=== PATIENT | female | born 1955 | race Caucasian/White ===

== ENCOUNTER 2017-09-28 08:43 | Emergency (ER) | payer MEDICARE, OTHER ==
[2017-09-28] MEDS ORDERED: ORPHENADRINE CITRATE 30 MG/ML VIAL IM ONE (09:18)
[2017-09-28] MEDS ORDERED: ORPHENADRINE CITRATE 30 MG/ML VIAL ONE (09:41)
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
[2017-09-28 10:46] VITALS: BP 148/74
== END 2017-09-28 10:50 | disposition home or self-care (01) ==
LOC: ER 08:43
DX: E11.9 Type 2 diabetes mellitus without complications; M54.2 Cervicalgia

== ENCOUNTER 2018-05-14 19:21 | Inpatient (IN) | payer MEDICARE, OTHER ==
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
[2018-05-14] MEDS ORDERED: ONDANSETRON HCL/PF 2 MG/ML VIAL IV ONE (20:01)
[2018-05-14] MEDS ORDERED: KETOROLAC TROMETHAMINE 30 MG/ML VIAL IV ONE (20:02)
[2018-05-14] MEDS ORDERED: KETOROLAC TROMETHAMINE 30 MG/ML VIAL ONE ×2 (20:04→20:41)
[2018-05-14] MEDS ORDERED: ONDANSETRON HCL/PF 2 MG/ML VIAL ONE (20:04)
[2018-05-14 20:16] LABS: Hematocrit 49.3 % (37.0-47.0); Hemoglobin 15.8 gm/dL (12.5-16.0); Mean Cell Volume 79.6 fl (78-100); Mean Corpuscular Hemoglobin 25.5 pg (27-31); Mean Platelet Volume 10.2 fl (8-12.5); Neutrophil # 8.7 K/mm3 (1.3-6.0); Neutrophil % 68.7 % (42-75.0); Platelet Count 387 K/mm3 (150-450); Red Blood Count 6.19 M/mm3 (4.2-5.4); Red Cell Distribution Width 15.5 % (11.5-14.0); White Blood Count 12.7 K/mm3 (4.0-10.5)
[2018-05-14 20:18] LABS: Total Cells Counted 100
[2018-05-14 20:30] LABS: Albumin * 3.5 gm/dl (3.4-5.0); Anion Gap 18.7 mmol/L (6.8-13.8); BUN/Creatinine Ratio 38.4 (9.0-21.6); Bilirubin, Total 0.5 mg/dL (0.0-1.1); Ca. Corrected For Albumin 9.1 mg/dL (8.4-10.2); Carbon Dioxide 24.5 mmol/L (24-32.6); Potassium 4.2 mmol/L (3.4-4.6); Total Protein 7.9 gm/dL (6.2-8.2)
[2018-05-14] MEDS: NORMAL SALINE 1,000 ML IV PRN ×2 (20:32→22:23)
[2018-05-14 20:35] LABS: Band 3 % (0-2.0); Lymphocyte 7 % (20-51); Monocyte 11 % (0-9); Neutrophil 79 % (42-75); Platelet Estimate Normal (NORMAL); RBC Morphology Normal (NORMAL)
[2018-05-14 21:10] LABS: BNP * 769 pg/mL (5-205); Troponin I Less than 0.017 ng/mL (0.00-0.10)
[2018-05-14] MEDS ORDERED: NORMAL SALINE 1,000 ML IV ONE (22:42)
[2018-05-15] MEDS: NORMAL SALINE 1,000 ML IV PRN ×3 (07:00→21:36)
[2018-05-15 07:50] LABS: Urine Bilirubin 1 mg/dl (NEGATIVE); Urine Blood Negative /ul (NEGATIVE); Urine Ketone 5 mg/dL (NEGATIVE); Urine Nitrite Negative (NEGATIVE); Urine Protein 15 mg/dL (NEGATIVE); Urine Specific Gravity >=1.030 SP.GR. (1.005-1.010); Urine Urobilinogen Normal (NORMAL); Urine pH 5.5 pH (5.0-7.0)
[2018-05-15 07:53] LABS: Anion Gap 14.6 mmol/L (6.8-13.8); BUN/Creatinine Ratio 50.8 (9.0-21.6); Calcium * 8.7 mg/dL (7.9-10.9); Estimated Creat Clear 22.5; Potassium 3.6 mmol/L (3.4-4.6)
[2018-05-15 07:57] LABS: Urine Appearance Slightly Cloudy (CLEAR); Urine Bacteria 2+; Urine Color Yellow; Urine Mucus Moderate - 2+; Urine RBC None Seen /hpf (0-5); Urine WBC 0-5 /hpf (0-5)
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
[2018-05-15] MEDS ORDERED: ONDANSETRON HCL 4 MG TABLET PO PRN (09:24)
[2018-05-15] MEDS: DILTIAZEM HCL 180 MG CAP.SR.24H PO SCH (09:58)
[2018-05-15] MEDS: ASPIRIN 81 MG TABLET.DR PO SCH (09:58)
[2018-05-15] MEDS: sitaGLIPtin PHOSPHATE 50 MG TABLET PO SCH (09:58)
[2018-05-15] MEDS: GLIMEPIRIDE 4 MG TABLET PO SCH ×2 (09:59→20:44)
[2018-05-15] MEDS: LOSARTAN POTASSIUM 50 MG TABLET PO SCH (09:59)
[2018-05-15] MEDS: LEVOTHYROXINE SODIUM 50 MCG TABLET PO SCH (09:59)
[2018-05-15] MEDS ORDERED: DILTIAZEM HCL 5 MG/ML VIAL IV ONE (11:27)
[2018-05-15] MEDS ORDERED: METOPROLOL TARTRATE 1 MG/ML AMPUL IV ONE (12:44)
[2018-05-15] MEDS: ENOXAPARIN SODIUM 30 MG/0.3 ML SYRG SC SCH (13:27)
[2018-05-15] MEDS ORDERED: ONDANSETRON HCL/PF 2 MG/ML VIAL ONE (19:33)
[2018-05-15] MEDS: ONDANSETRON HCL/PF 2 MG/ML VIAL IV SCH ×2 (19:35→23:09)
[2018-05-15] MEDS: ROSUVASTATIN CALCIUM 10 MG TABLET PO SCH (20:44)
[2018-05-15] MEDS: TOPIRAMATE 50 MG TABLET PO SCH (20:45)
[2018-05-16] MEDS: ONDANSETRON HCL/PF 2 MG/ML VIAL IV SCH (03:28)
[2018-05-16] MEDS: METOCLOPRAMIDE HCL 5 MG/ML VIAL IV PRN ×2 (05:01→09:44)
[2018-05-16] MEDS: NORMAL SALINE 1,000 ML IV PRN ×3 (05:01→19:35)
[2018-05-16 06:18] LABS: Anion Gap 12.3 mmol/L (6.8-13.8); BUN/Creatinine Ratio 58.8 (9.0-21.6); Calcium * 9.1 mg/dL (7.9-10.9); Carbon Dioxide 29.2 mmol/L (24-32.6); Estimated Creat Clear 35.3; Potassium 3.5 mmol/L (3.4-4.6)
[2018-05-16] MEDS: LEVOTHYROXINE SODIUM 50 MCG TABLET PO SCH (07:06)
[2018-05-16] MEDS ORDERED: DIATRIZOATE MEGLUMINE, SODIUM 30 ML BTL PO ONE (08:00)
--- NOTE | 2018-05-16 08:40 | PN ---
Progess Note - Interim Date: 05/16/18 Time: 08:38 Narrative: 05/16/18 08:38 Patient still with Nausea as we were talking to her. Further plans pending CTS of abdomen and pelvis. Will refer to Dr. Gillis. Keep NPO and continue with IVF.
[2018-05-16] MEDS: DILTIAZEM HCL 180 MG CAP.SR.24H PO SCH (11:25)
[2018-05-16] MEDS: LOSARTAN POTASSIUM 50 MG TABLET PO SCH (11:25)
[2018-05-16] MEDS: sitaGLIPtin PHOSPHATE 50 MG TABLET PO SCH (11:25)
[2018-05-16] MEDS: ASPIRIN 81 MG TABLET.DR PO SCH (11:25)
[2018-05-16] MEDS: GLIMEPIRIDE 4 MG TABLET PO SCH ×2 (11:25→21:27)
[2018-05-16] MEDS: ENOXAPARIN SODIUM 30 MG/0.3 ML SYRG SC SCH (14:29)
--- NOTE | 2018-05-16 16:12 | PN ---
Subjective - Date and Time Seen Date: 05/16/18 Time: 16:07 Subjective Narrative: Patient had a CTS done- SBO Objective - Review of Systems Generalized/Overall Review: Denies: Chills, Fever Respiratory: Denies: Cough, Shortness of Breath Cardiac: Denies: Chest Pain, Edema, Palpitations Abdominal: Reports: Nausea. Denies: Vomiting, Abdominal Pain Genitourinary Symptoms: Denies: Urgency, Frequency - Vitals Vitals: Last Vital Signs Temp 36.9 C 05/16/18 14:30 Pulse 102 H 05/16/18 14:30 Resp 16 05/16/18 14:30 BP 129/53 05/16/18 14:30 Pulse Ox 91 L 05/16/18 14:30 - Abnormal Lab Findings Abnormal Lab Findings: Abnormal Lab Results 05/16/18 Range/Units 06:00 BUN 67 H (3-23) mg/dL Est GFR (Non-Af Amer) 52 L D (60-130) mL/min BUN/Creatinine Ratio 58.8 H (9.0-21.6) Random Glucose 286 H (70-110) mg/dL - Exam Constitutional: Present: Alert, Oriented x3, Cooperative ENT Exam: Present: hearing grossly normal Neck: Present: supple Respiratory: Present: decreased breath sounds. Absent: No rales, No wheezing Cardiovascular/Chest: Present: regular rate, rhythm, no JVD, no murmur Abdomen: Present: no rebound tenderness, tender - mild, firm, distended, high pitched bowel sounds Extremity: Present: no pedal edema, no calf tenderness Assessment/Plan - Problems/Diagnosis (1) Small bowel obstruction Problem: Acute Narrative: on AXR and CTS . Surgery on consult. continue with NPO nd IVF. will repeat CBc, BMP. (2) Diabetes mellitus Problem: Acute (3) HALIE (acute kidney injury) Problem: Acute (4) Concussion Problem: Acute (5) Dehydration Problem: Acute (6) Fall Problem: Acute Qualifiers: Encounter type: initial encounter Qualified Code(s): W19.XXXA - Unspecified fall, initial encounter (7) Hyperlipidemia Problem: Chronic (8) Hypertension Problem: Chronic (9) Hypothyroidism Problem: Chronic (10) Morbid obesity Problem: Chronic
[2018-05-16 16:44] LABS: Hematocrit 46.7 % (37.0-47.0); Hemoglobin 14.6 gm/dL (12.5-16.0); Mean Cell Volume 80.1 fl (78-100); Mean Corpuscular Hgb Conc 31.3 g/dl (32-36); Mean Platelet Volume 9.8 fl (8-12.5); Platelet Count 287 K/mm3 (150-450); Red Blood Count 5.83 M/mm3 (4.2-5.4); Red Cell Distribution Width 15.6 % (11.5-14.0); White Blood Count 18.6 K/mm3 (4.0-10.5)
[2018-05-16 16:49] LABS: Total Cells Counted 100
[2018-05-16 17:15] LABS: Immature Granulocyte 3 (0-1); Lymphocyte 6 % (20-51); Monocyte 12 % (0-9); Neutrophil 79 % (42-75); Neutrophil # 14.7 K/mm3 (1.3-6.0)
[2018-05-16] MEDS: TOPIRAMATE 50 MG TABLET PO SCH (21:27)
[2018-05-16] MEDS: ROSUVASTATIN CALCIUM 10 MG TABLET PO SCH (21:27)
--- NOTE | 2018-05-16 21:36 | CONS ---
HPI - General Date of Service: 05/16/18 Source: patient, RN/MD, RN notes reviewed, old records Exam Limitations: clinical condition - History of Present Illness Initial Comments: The patient is a 63-year-old female who initially was seen in the emergency room on 05/12/2018 after she fell and hit her head. Workup at that time was negative and she was discharged home. She returned yesterday complaining of headache and persistent nausea and vomiting and was admitted because of this. An abdominal film revealed abnormal bowel gas pattern and I was consulted. I ordered a CT scan. Currently the patient states that her abdomen does not hurt. She had hiccups earlier but that has resolved. She has not vomited since she drank contrast for the CT and states she is thirsty. She has not passed gas. It is unclear when she had a last bowel movement. Her surgical history is remarkable for a hysterectomy in 2009. She subsequently has developed a large ventral hernia which is seen on a CT scan from 2013. Allergies/Adverse Reactions: Allergies ciprofloxacin [From Cipro] Allergy (Intermediate, Verified 05/14/18 19:43) Rash celecoxib [From Celebrex] Allergy (Mild, Verified 05/14/18 19:43) RASH apple Adverse Reaction (Severe, Verified 05/15/18 08:20) Diarrhea lactose Adverse Reaction (Mild, Verified 05/14/18 19:43) Diarrhea Home Medications: Home Medications Medication Instructions Recorded Last Taken Lactobacillus Acidophilus 1 ea PO DAILY PRN 10/28/13 11/07/13 [Probiotic] Aspirin [Aspirin Enteric Coated] 81 mg PO DAILY 12/02/17 05/10/18 Blood-Glucose Meter [Blood Glucose 1 each MC DAILY 12/02/17 Unknown Monitoring] Calcium Carbonate [[id number]] 500 mg PO TID 12/02/17 05/10/18 Cholecalciferol (Vitamin D3) 2,000 unit PO DAILY 12/02/17 05/10/18 [Vitamin D] Ferrous Sulfate [Iron] 325 mg PO DAILY 12/02/17 05/10/18 Levothyroxine Sodium [Synthroid] 50 mcg PO DAILY 12/02/17 05/10/18 Naproxen Sodium [Aleve] 220 mg PO BID 12/02/17 05/15/18 Topiramate [Topamax] 100 mg PO HS 12/02/17 05/10/18 metFORMIN HCL [Glucophage] 250 mg PO BID 12/02/17 05/10/18 sitaGLIPtin PHOSPHATE [Januvia] 100 mg PO DAILY 12/02/17 05/10/18 Omeprazole 20 mg PO DAILY 12/20/17 05/10/18 losartan 50 mg tablet 50 mg PO DAILY #90 tab 02/25/18 05/10/18 atorvastatin 10 mg tablet 10 mg PO HS #90 tab 04/15/18 05/10/18 diltiazem CD 180 mg 180 mg PO DAILY #90 cap 04/15/18 05/10/18 capsule,extended release 24 hr furosemide 20 mg tablet 20 mg PO DAILY #30 tab 04/15/18 05/10/18 glimepiride 4 mg tablet 4 mg PO BID #60 tab 04/15/18 05/10/18 albuterol sulfate HFA 90 2 puff IH Q6H PRN 05/09/18 Unknown mcg/actuation aerosol inhaler metFORMIN HCL [Metformin HCl] 1,000 mg PO BIDWM 05/15/18 05/10/18 Procedures Colonoscopy (02/03/12) Esophagogastroduodenoscopy [EGD] with closed biopsy (09/12/08) Other local excision or destruction of lesion or tissue of skin and subcutaneous tissue (04/30/03) Release of carpal tunnel (04/07/12) Replacement of Left Lens with Synthetic Substitute, Percutaneous Approach (12/20) Replacement of Right Lens with Synthetic Substitute, Percutaneous Approach () Medications - Medications Current Medications: Current Medications Aspirin (Aspirin Enteric Coated) 81 mg PO DAILY [facility]ORNA Stop: 06/14/18 09:16 Last Admin: 05/16/18 11:25 Dose: Not Given Diltiazem HCl (Cardizem Cd) 180 mg PO DAILY [facility]NA Stop: 06/14/18 09:16 Last Admin: 05/16/18 11:25 Dose: Not Given Enoxaparin Sodium (Lovenox) 30 mg SC Q24H [facility] Stop: 06/14/18 13:31 Last Admin: 05/16/18 14:29 Dose: 30 mg Glimepiride (Amaryl) 4 mg PO BID [facility] Stop: 06/14/18 09:16 Last Admin: 05/16/18 21:27 Dose: Not Given Sodium Chloride (Sodium Chloride 0.9%) 1,000 mls @ 150 mls/hr IV .Q6H40M PRN PRN Reason: HYDRATION Stop: 06/14/18 09:48 Last Admin: 05/16/18 19:35 Dose: 150 mls/hr Levothyroxine Sodium (Synthroid) 50 mcg PO DAILY@0700 [facility] Stop: 06/14/18 09:16 Last Admin: 05/16/18 07:06 Dose: 50 mcg Losartan Potassium (Cozaar) 50 mg PO DAILY [facility] Stop: 06/14/18 09:16 Last Admin: 05/16/18 11:25 Dose: Not Given Metformin HCl (Glucophage) 1,000 mg PO BIDWM [facility] Stop: 06/14/18 17:01 Last Admin: 05/16/18 16:44 Dose: Not Given Metoclopramide HCl (Reglan) 10 mg IV Q4H PRN PRN Reason: Nausea And Vomiting Stop: 06/14/18 21:32 Last Admin: 05/16/18 09:44 Dose: 10 mg Rosuvastatin Calcium (Crestor) 5 mg PO [facility] Stop: 06/14/18 21:01 Last Admin: 05/16/18 21:27 Dose: Not Given Sitagliptin Phosphate (Januvia) 100 mg PO DAILY [facility] Stop: 06/14/18 09:16 Last Admin: 05/16/18 11:25 Dose: Not Given Topiramate (Topamax) 100 mg PO HS [facility] Stop: 06/14/18 21:01 Last Admin: 05/16/18 21:27 Dose: Not Given Review of Systems - Review of Systems Generalized/Overall Review: Present: Fatigue EENTM: Present: No Symptoms Reported Respiratory: Present: Cough Cardiac: Present: Palpitations. Absent: Chest Pain Abdominal: Present: Other - She currently states that her abdomen does not hurt. She can feel rumbling but has not passed gas Genitourinary: Present: No Symptoms Reported Musculoskeletal: Present: No Symptoms Reported Neurological: Present: Headache, Weakness Skin: Present: No Symptoms Reported Physical Examination - Exam Vital Signs: Vital Signs - Last Taken Temp 36.8 C 05/16/18 18:20 Pulse 92 05/16/18 18:20 Resp 16 05/16/18 18:20 BP 112/57 05/16/18 18:20 Pulse Ox 91 L 05/16/18 18:20 O2 Oxygen Delivery Method Room Air Constitutional: Present: Oriented x3, Cooperative, Somnolent, Morbidly obese ENT Exam: Present: normal ENT inspection Eye Exam: bilateral eye: normal inspection Neck: Present: normal inspection Respiratory: Present: no respiratory distress Cardiovascular/Chest: Present: regular rate, rhythm Abdomen: Present: other - Her abdomen is obese and very distended. There is a very large ventral hernia which is tense but the patient states is not tender to either percussion or most palpation. There is some mild palpation tenderness on the right side, but again she says "it does not hurt that bad". Extremity: Present: normal inspection Skin Exam: Present: pallor Neurologic: Present: filament cutter II-XII nml as tested Thoughts: Present: other - Her affect is blunted. She is slow with responses - Results and Findings: Lab/Microbiology results last 24 hrs: Abnormal/Pending Laboratory Last 24 HRS 05/16/18 05/16/18 16:42 06:00 WBC 18.6 H D RBC 5.83 H MCH 25.0 L MCHC 31.3 L RDW 15.6 H Neutrophils % (Manual) 79 H Lymphocytes % (Manual) 6 L Monocytes % (Manual) 12 H Immature Granulocytes 3 H Neutrophils # (Manual) 14.7 H Lymphocytes # (Manual) 1.1 L Monocytes # (Manual) 2.2 H BUN 67 H Est GFR (Non-Af Amer) 52 L D BUN/Creatinine Ratio 58.8 H Random Glucose [address] scan of the abdomen and pelvis does confirm a large ventral hernia there is some fluid associated with this and also some changes with stranding. Although there is some air and stool in the colon there is a difference in caliber. - Assessments/Findings (1) Small bowel obstruction Diagnosis(s): The size of the hernia and her BMI along with her attendant medical condition would preclude any operative intervention at this facility. I would recommend decompression with a nasogastric tube with serial exams, and if her condition does not improve by morning would transfer the patient to a tertiary care center. I have placed a nasogastric tube with immediate return of 750 mL of clear green liquid. A chest x-ray has been taken to confirm placement. Reviewed and electronically signed Problem: Acute
[2018-05-17] MEDS ORDERED: DILTIAZEM HCL 5 MG/ML VIAL IV ONE ×2 (01:11→03:58)
[2018-05-17] MEDS ORDERED: DIGOXIN 0.25 MG/ML AMPUL IV ONE (02:05)
[2018-05-17] MEDS ORDERED: DILTIAZEM HCL 125 MG in DEXTROSE 5 % IN WATER 100 ML IV PRN ×2 (04:54)
[2018-05-17 07:42] LABS: Hemoglobin 14.2 gm/dL (12.5-16.0); Mean Cell Volume 79.9 fl (78-100); Mean Corpuscular Hemoglobin 25.2 pg (27-31); Mean Corpuscular Hgb Conc 31.6 g/dl (32-36); Mean Platelet Volume 10.3 fl (8-12.5); Platelet Count 257 K/mm3 (150-450); Red Blood Count 5.63 M/mm3 (4.2-5.4); Red Cell Distribution Width 15.6 % (11.5-14.0); White Blood Count 14.5 K/mm3 (4.0-10.5)
[2018-05-17 07:44] LABS: Total Cells Counted 100
[2018-05-17 07:48] LABS: Anion Gap 10.2 mmol/L (6.8-13.8); BUN/Creatinine Ratio 51.8 (9.0-21.6); Calcium * 8.5 mg/dL (7.9-10.9); Potassium 3.2 mmol/L (3.4-4.6)
[2018-05-17] MEDS ORDERED: DIGOXIN 0.25 MG/ML AMPUL IV SCH (08:05)
[2018-05-17 08:06] LABS: Band 12 % (0-2.0); Immature Granulocyte 1 (0-1); Lymphocyte 6 % (20-51); Monocyte 9 % (0-9); Neutrophil 72 % (42-75); Neutrophil # 10.4 K/mm3 (1.3-6.0)
[2018-05-17 08:07] LABS: Platelet Estimate Normal (NORMAL)
[2018-05-17 08:08] LABS: Hypochromia Trace; Polychromasia Trace
[2018-05-17] MEDS: GLIMEPIRIDE 4 MG TABLET PO SCH ×2 (08:30→23:14)
[2018-05-17] MEDS: LOSARTAN POTASSIUM 50 MG TABLET PO SCH (08:30)
[2018-05-17] MEDS: ASPIRIN 81 MG TABLET.DR PO SCH (08:30)
[2018-05-17] MEDS ORDERED: POTASSIUM CHLORIDE IN WATER 100 ML IV SCH (08:30)
[2018-05-17] MEDS: sitaGLIPtin PHOSPHATE 50 MG TABLET PO SCH (08:31)
[2018-05-17] MEDS: DILTIAZEM HCL 180 MG CAP.SR.24H PO SCH (08:32)
[2018-05-17] MEDS: LEVOTHYROXINE SODIUM 50 MCG TABLET PO SCH (08:32)
--- NOTE | 2018-05-17 08:35 | PN ---
Progess Note - Interim Date: 05/17/18 Time: 08:33 Narrative: 05/17/18 08:33 Patient had AFib again last night with RVR in the 160's. Started on cardizem drip . Spontaneously converted this morning. leukocytosis- will start IV antibiotics. . still with no passage of gas. will likely transfer patient to a tertiary institution.
[2018-05-17] MEDS: SACCHAROMYCES BOULARDII 250 MG CAPSULE PO SCH ×2 (08:39→23:15)
[2018-05-17] MEDS: POTASSIUM CHLORIDE 20 MEQ in NORMAL SALINE 1,000 ML IV SCH (09:06)
[2018-05-17] MEDS: NORMAL SALINE 1,000 ML IV PRN ×3 (09:21→23:13)
[2018-05-17] MEDS: PIPERACILLIN SODIUM/TAZOBACTAM 3.375 GM in DEXTROSE 5 % IN WATER 100 ML IV SCH ×4 (09:34→16:16)
--- NOTE | 2018-05-17 09:42 | DS ---
Transfer Discharge Summary - Diagnosis(s)/Problems (1) Small bowel obstruction Problem: Acute (2) Ventral hernia Narrative: large Problem: Chronic (3) Diabetes mellitus Problem: Chronic (4) HALIE (acute kidney injury) Problem: Resolved (5) Concussion Narrative: subacute Problem: Acute (6) Dehydration Problem: Resolved (7) Fall Problem: Acute (8) Hyperlipidemia Problem: Chronic (9) Hypertension Problem: Chronic (10) Hypothyroidism Problem: Chronic (11) Morbid obesity Problem: Chronic - Course Description of Stay: Davina Raymond, ia 63 yo F with a PMH of DM, HLD, HTN, hypothyroidism, Ventral hernia , who was admitted on because of nausea and vomiting. Two days ACTUARY, she went to the ER for a fall where she hit her head. She had a negative workup and was dx with a concussion. She came back to the ER due to worsening N/ V and headache. She denied other neurological symptoms: no dizziness/weakness/ numbness/vision changes. Her headache was not worsening but still concerned her that it was there. Pertinent labs in the ER include a gfr of 20 (baseline 70-80s) and a creatinine of 2.55 (baseline in <1). Fena ordered which returned indicating prerenal, she was likely dehydrated. She admitted to drinking less but she stated it was because she had been nauseated since she hit her head. She vomited once since being moved to the floor. She was started on IVF and renal function improved. She continued to have N/V and so AXR was taken which showed SBO. CTS done confirmed a SBO with a large ventral hernia. She was kept on NPO and IVF and NGT inserted . Surgery was consulted and he tried reducing the hernia without success. He recommended transferring her if patient does not improve with conservative approach. She had 2 episodes of AFib with RVR for which she was started on caridzem drip. She converted spontaneously. She was started on IV Zosyn and therapeutic anticoagulation with lovenox for now for her intermittent AFib ( CHADS 2). Consultation Done:: Surgery- Dr. Gillis Procedures Performed: none - Results and Findings Results and Findings: Laboratory Results - last 24 hr 05/16/18 05/17/18 05/17/18 16:42 07:36 07:36 WBC 18.6 H D 14.5 H D RBC 5.83 H 5.63 H Hgb 14.6 14.2 Hct 46.7 45.0 MCV 80.1 79.9 MCH 25.0 L 25.2 L MCHC 31.3 L 31.6 L RDW 15.6 H 15.6 H Plt Count 287 257 MPV 9.8 10.3 Neutrophils % (Manual) 79 H 72 Band Neuts % (Manual) 12 H Lymphocytes % (Manual) 6 L 6 L Monocytes % (Manual) 12 H 9 Immature Granulocytes 3 H 1 Neutrophils # (Manual) 14.7 H 10.4 H Lymphocytes # (Manual) 1.1 L 0.9 L Monocytes # (Manual) 2.2 H 1.3 H Platelet Estimate Normal Polychromasia Trace Hypochromasia Trace Sodium 138 Plasma Sodium 140 Potassium 3.2 L Chloride 100 Carbon Dioxide 31.0 Anion Gap 10.2 BUN 72 H Creatinine 1.39 Est GFR (Non-Af Amer) 41 L D BUN/Creatinine Ratio 51.8 H Random Glucose 239 H Calcium 8.5 - Medications Medications: Active Medications Aspirin (Aspirin Enteric Coated) 81 mg PO DAILY [facility] Stop: 06/14/18 09:16 Last Admin: 05/17/18 08:30 Dose: 81 mg Diltiazem HCl (Cardizem Cd) 180 mg PO DAILY [facility] Stop: 06/14/18 09:16 Last Admin: 05/17/18 08:32 Dose: 180 mg Enoxaparin Sodium (Lovenox) 30 mg SC Q24H [facility] Stop: 06/14/18 13:31 Last Admin: 05/16/18 14:29 Dose: 30 mg Glimepiride (Amaryl) 4 mg PO BID [facility] Stop: 06/14/18 09:16 Last Admin: 05/17/18 08:30 Dose: 4 mg Sodium Chloride (Sodium Chloride 0.9%) 1,000 mls @ 150 mls/hr IV .Q6H40M PRN PRN Reason: HYDRATION Stop: 06/14/18 09:48 Last Admin: 05/17/18 09:21 Dose: 150 mls/hr Diltiazem HCl 125 mg/ Dextrose (/Water) 125 mls @ 0 mls/hr IV TITR PRN; Protocol PRN Reason: Arrhythmia Stop: 06/16/18 04:55 Last Titration: 05/17/18 09:21 Dose: 0 mg/hr, 0 mls/hr Potassium Chloride 20 meq/ (Sodium Chloride) 1,010 mls @ 30 mls/hr IV .Q24H [facility] Stop: 06/16/18 09:31 Last Admin: 05/17/18 09:06 Dose: 30 mls/hr Piperacillin Sod/Tazobactam (Sod 3.375 gm/ Dextrose/Water) 100 mls @ 25 mls/hr IV Q8H [facility]; Protocol Stop: 06/16/18 08:46 Last Admin: 05/17/18 09:34 Dose: 25 mls/hr Levothyroxine Sodium (Synthroid) 50 mcg PO DAILY@0700 [facility] Stop: 06/14/18 09:16 Last Admin: 05/17/18 08:32 Dose: 50 mcg Losartan Potassium (Cozaar) 50 mg PO DAILY [facility] Stop: 06/14/18 09:16 Last Admin: 05/17/18 08:30 Dose: 50 mg Metformin HCl (Glucophage) 1,000 mg PO BIDWM [facility] Stop: 06/14/18 17:01 Last Admin: 05/16/18 16:44 Dose: Not Given Metoclopramide HCl (Reglan) 10 mg IV Q4H PRN PRN Reason: Nausea And Vomiting Stop: 06/14/18 21:32 Last Admin: 05/16/18 09:44 Dose: 10 mg Rosuvastatin Calcium (Crestor) 5 mg PO HS [facility] Stop: 06/14/18 21:01 Last Admin: 05/16/18 21:27 Dose: Not Given Saccharomyces Boulardii (Florastor) 250 mg PO BID [facility] Stop: 06/16/18 09:01 Last Admin: 05/17/18 08:39 Dose: 250 mg Sitagliptin Phosphate (Januvia) 100 mg PO DAILY [facility] Stop: 06/14/18 09:16 Last Admin: 05/17/18 08:31 Dose: 100 mg Topiramate (Topamax) 100 mg PO HS [facility] Stop: 06/14/18 21:01 Last Admin: 05/16/18 21:27 Dose: Not Given Discontinued Medications Diatrizoate Meglum/Diatrizoate Sod (Gastrografin Solution) 60 ml PO ONCE ONE Stop: 05/16/18 08:01 Last Admin: 05/16/18 08:08 Dose: 60 ml Digoxin (Lanoxin) 0.5 mg IV ONCE ONE Stop: 05/17/18 02:06 Last Admin: 05/17/18 02:20 Dose: 0.5 mg Diltiazem HCl (Cardizem) 5 mg IV ONCE ONE Stop: 05/15/18 11:28 Last Admin: 05/15/18 11:35 Dose: 5 mg Diltiazem HCl (Cardizem) 5 mg IV ONCE ONE Stop: 05/17/18 01:12 Last Admin: 05/17/18 01:19 Dose: 5 mg Diltiazem HCl (Cardizem) 5 mg IV ONCE ONE Stop: 05/17/18 03:59 Last Admin: 05/17/18 04:20 Dose: 5 mg Sodium Chloride (Sodium Chloride 0.9%) 1,000 mls @ 999 mls/hr IV .Q1H1M PRN PRN Reason: HYDRATION Stop: 06/13/18 20:02 Last Infusion: 05/14/18 23:42 Dose: Infused Sodium Chloride (Sodium Chloride 0.9%) 1,000 mls @ 150 mls/hr IV .Q6H40M ONE Stop: 05/15/18 05:21 Last Infusion: 05/15/18 06:52 Dose: Infused Potassium Chloride/Water (Kcl 10 Meq/100 Ml Piggyback) 100 mls @ 100 mls/hr IV Q1H [facility] Stop: 05/17/18 09:29 Last Admin: 05/17/18 09:05 Dose: 100 mls/hr Ketorolac Tromethamine (Toradol) 30 mg IV ONCE ONE Stop: 05/14/18 20:03 Last Admin: 05/14/18 20:48 Dose: 30 mg Metoprolol Tartrate (Lopressor) 5 mg IV ONCE ONE Stop: 05/15/18 12:45 Last Admin: 05/15/18 13:21 Dose: 5 mg Ondansetron HCl (Zofran) 4 mg IV ONCE ONE Stop: 05/14/18 20:02 Last Admin: 05/14/18 20:45 Dose: 4 mg Ondansetron HCl (Zofran) 4 mg PO Q4H PRN PRN Reason: Nausea And Vomiting Stop: 06/14/18 09:25 Last Admin: 05/15/18 10:50 Dose: 4 mg Ondansetron HCl (Zofran) 4 mg IV Q4H [facility] Stop: 05/16/18 03:31 Last Admin: 05/16/18 03:28 Dose: 4 mg - Disposition Disposition: Short Term Hospital Inpatient Condition: Fair Discharge Date: 05/17/18
[2018-05-17] MEDS: ENOXAPARIN SODIUM 100 MG/ML SYRG SC SCH (12:54)
--- NOTE | 2018-05-17 20:55 | PN ---
Dictated Progress Note - Date and Time Seen: Date: 05/17/18 Time: 20:47 - Second visit - Progress Note Narrative: Vital Signs - Last Taken Temp 37.1 C 05/17/18 18:43 Pulse 104 H 05/17/18 18:43 Resp 20 05/17/18 18:43 BP 116/37 05/17/18 18:43 Pulse Ox 94 05/17/18 18:43 Abnormal/Pending Laboratory Last 24 HRS 05/17/18 05/17/18 07:36 07:36 WBC 14.5 H D RBC 5.63 H MCH 25.2 L MCHC 31.6 L RDW 15.6 H Band Neuts % (Manual) 12 H Lymphocytes % (Manual) 6 L Neutrophils # (Manual) 10.4 H Lymphocytes # (Manual) 0.9 L Monocytes # (Manual) 1.3 H Potassium 3.2 L BUN 72 H Est GFR (Non-Af Amer) 41 L D BUN/Creatinine Ratio 51.8 H Random Glucose 239 H This morning her hernia was still very hard and tender. She had a large amount of NG output over the night. She ambulated a little today. She states she has passed some gas but has not had a bowel movement. On exam the hernia is much softer and can actually be manipulated to move gas in and out of it. The herniated material however will not reduce into the abdomen completely. Her white blood cell count is decreased a little today as well. [facility] and [facility] in [place] have both declined to accept the patient. The triage officer at the [facility] recommended that the hernia be reduced, and to call them if it could not be reduced to prioritize her for transfer. The hernia CANNOT be reduced, however clinically and on exam it does appear that her obstruction has resolved. RECOMMEND: It would appear that the patient, at least for now, can be safely kept here on NG suction. Continue NG suction until it is clear that her bowels are working again and the obstruction is relieved. I will continue to follow the patient Reviewed and electronically signed
[2018-05-17] MEDS: ROSUVASTATIN CALCIUM 10 MG TABLET PO SCH (23:14)
[2018-05-17] MEDS: TOPIRAMATE 50 MG TABLET PO SCH (23:14)
[2018-05-18] MEDS: PIPERACILLIN SODIUM/TAZOBACTAM 3.375 GM in DEXTROSE 5 % IN WATER 100 ML IV SCH ×6 (01:49→16:44)
[2018-05-18 05:56] LABS: BUN/Creatinine Ratio 52.6 (9.0-21.6); Hematocrit 45.1 % (37.0-47.0); Hemoglobin 13.7 gm/dL (12.5-16.0); Mean Cell Volume 82.8 fl (78-100); Mean Corpuscular Hemoglobin 25.1 pg (27-31); Mean Corpuscular Hgb Conc 30.4 g/dl (32-36); Mean Platelet Volume 10.5 fl (8-12.5); Neutrophil % 74.5 % (42-75.0); Platelet Count 207 K/mm3 (150-450); Red Blood Count 5.45 M/mm3 (4.2-5.4); Red Cell Distribution Width 15.5 % (11.5-14.0); White Blood Count 12.1 K/mm3 (4.0-10.5)
[2018-05-18 07:41] LABS: Carbon Dioxide 31.1 mmol/L (24-32.6); Potassium 3.1 mmol/L (3.4-4.6)
--- NOTE | 2018-05-18 08:20 | PN ---
Subjective - Date and Time Seen Date: 05/18/18 Time: 08:15 Subjective Narrative: Patient has been passing gas but still with no BM. Afebrile. WBC is down further. Objective - Review of Systems Generalized/Overall Review: Denies: Chills, Fever Respiratory: Denies: Cough, Shortness of Breath Cardiac: Denies: Chest Pain, Edema, Palpitations Abdominal: Reports: Nausea. Denies: Vomiting, Abdominal Pain Genitourinary Symptoms: Denies: Urgency, Frequency - Vitals Vitals: Last Vital Signs Temp 36.7 C 05/18/18 06:52 Pulse 84 05/18/18 06:52 Resp 18 05/18/18 06:52 BP 118/49 05/18/18 06:52 Pulse Ox 95 05/18/18 06:52 - Abnormal Lab Findings Abnormal Lab Findings: Abnormal Lab Results 05/18/18 05/18/18 Range/Units 05:35 05:35 WBC 12.1 H (4.0-10.5) K/mm3 RBC 5.45 H (4.2-5.4) M/mm3 MCH 25.1 L (27-31) pg MCHC 30.4 L (32-36) g/dl RDW 15.5 H (11.5-14.0) % Immature Gran % (Auto) 4.10 H (0.001-0.429) % Immature Gran # (Auto) 0.49 H (0.000-0.0310) K/mm3 Lymphocytes % 11.4 L (20-51) % Monocytes % 9.2 H (0.0-9) % Neutrophils # 9.0 H (1.3-6.0) K/mm3 Lymphocytes # 1.38 L (1.5-3.5) k/mm3 Monocytes # 1.1 H (0.0-1.0) k/mm3 Sodium 145 H (132-142) mmol/L Potassium 3.1 L (3.4-4.6) mmol/L BUN 61 H (3-23) mg/dL Est GFR (Non-Af Amer) 50 L D (60-130) mL/min BUN/Creatinine Ratio 52.6 H (9.0-21.6) - Exam Constitutional: Present: Alert, Oriented x3, Cooperative ENT Exam: Present: hearing grossly normal Neck: Present: supple Cardiovascular/Chest: Present: regular rate, rhythm, no JVD, no murmur Abdomen: Present: no rebound tenderness, obese, tender, firm, mass palpable, hypoactive Extremity: Present: no calf tenderness, pedal edema Assessment/Plan - Problems/Diagnosis (1) Small bowel obstruction Problem: Acute Narrative: likely due to hernia. passing gas. (2) Ventral hernia Problem: Chronic Qualifiers: Obstruction and gangrene presence: with obstruction but without gangrene Qualified Code(s): K43.6 - Other and unspecified ventral hernia with obstruction , without gangrene Narrative: passing gas. possible transfer if condition gets worst. (3) Diabetes mellitus Problem: Chronic (4) HALIE (acute kidney injury) Problem: Resolved (5) Concussion Problem: Resolved (6) Dehydration Problem: Resolved (7) Fall Problem: Acute Qualifiers: Encounter type: initial encounter Qualified Code(s): W19.XXXA - Unspecified fall, initial encounter (8) Hyperlipidemia Problem: Chronic (9) Hypertension Problem: Chronic (10) Hypothyroidism Problem: Chronic (11) Morbid obesity Problem: Chronic
[2018-05-18] MEDS: LEVOTHYROXINE SODIUM 50 MCG TABLET PO SCH (08:25)
[2018-05-18] MEDS: POTASSIUM CHLORIDE IN WATER 100 ML IV SCH ×2 (09:14→10:16)
[2018-05-18] MEDS: SACCHAROMYCES BOULARDII 250 MG CAPSULE PO SCH (10:17)
[2018-05-18] MEDS: DILTIAZEM HCL 180 MG CAP.SR.24H PO SCH (10:17)
[2018-05-18] MEDS: ASPIRIN 81 MG TABLET.DR PO SCH (10:17)
[2018-05-18] MEDS: GLIMEPIRIDE 4 MG TABLET PO SCH (10:18)
[2018-05-18] MEDS: LOSARTAN POTASSIUM 50 MG TABLET PO SCH (10:18)
[2018-05-18] MEDS: sitaGLIPtin PHOSPHATE 50 MG TABLET PO SCH (10:18)
[2018-05-18] MEDS: ENOXAPARIN SODIUM 100 MG/ML SYRG SC SCH (11:25)
--- NOTE | 2018-05-18 14:46 | DS ---
Transfer Discharge Summary - Diagnosis(s)/Problems (1) Small bowel obstruction Narrative: due to large ventral hernia r/o adhseions Problem: Acute (2) Ventral hernia Problem: Chronic (3) Diabetes mellitus Problem: Chronic (4) HALIE (acute kidney injury) Problem: Resolved (5) Concussion Problem: Resolved (6) Dehydration Problem: Resolved (7) Fall Problem: Acute (8) Hyperlipidemia Problem: Chronic (9) Hypertension Problem: Chronic (10) Hypothyroidism Problem: Chronic (11) Morbid obesity Problem: Chronic - Course Description of Stay: Davina Raymond, ia 63 yo F with a PMH of DM, HLD, HTN, hypothyroidism, Ventral hernia , who was admitted on because of nausea and vomiting. Two days [employer], she went to the ER for a fall where she hit her head. She had a negative workup and was dx with a concussion. She came back to the ER due to worsening N/ V and headache. She denied other neurological symptoms: no dizziness/weakness/ numbness/vision changes. Her headache was not worsening but still concerned her that it was there. Pertinent labs in the ER include a gfr of 20 (baseline 70-80s) and a creatinine of 2.55 (baseline in <1). Fena ordered which returned indicating prerenal, she was likely dehydrated. She admitted to drinking less but she stated it was because she had been nauseated since she hit her head. She vomited once since being moved to the floor. She was started on IVF and renal function improved. She continued to have N/V and so AXR was taken which showed SBO. CTS done confirmed a SBO with a large ventral hernia. She was kept on NPO and IVF and NGT inserted . Surgery was consulted and he tried reducing the hernia without success. He recommended transferring her if patient does not improve with conservative approach. She had 2 episodes of AFib with RVR for which she was started on caridzem drip. She converted spontaneously. She was started on IV Zosyn and therapeutic anticoagulation with lovenox for now for her intermittent AFib ( CHADS 2). Surgery tried reducing her hernia again but was not succesful again but since it was softer and he was able to make gas her transfer was put on hold. Today she still has not had BM and her NGT had fecaloid fluid material. She is awaitng vacancy in [facility] for more definite intervention. Procedures Performed: none - Results and Findings Results and Findings: Laboratory Results - last 24 hr 05/18/18 05/18/18 05/18/18 05:00 05:35 05:35 WBC 12.1 H RBC 5.45 H Hgb 13.7 Hct 45.1 MCV 82.8 MCH 25.1 L MCHC 30.4 L RDW 15.5 H Plt Count 207 MPV 10.5 Immature Gran % (Auto) 4.10 H Immature Gran # (Auto) 0.49 H Neutrophils % 74.5 Lymphocytes % 11.4 L Monocytes % 9.2 H Eosinophils % 0.2 Basophils % 0.6 Nucleated RBC % 0.0 Neutrophils # 9.0 H Lymphocytes # 1.38 L Monocytes # 1.1 H Eosinophils # 0.0 Absolute Basophils 0.1 Sodium 145 H Potassium 3.1 L Chloride 106 Carbon Dioxide 31.1 Anion Gap 11.0 BUN 61 H Creatinine 1.16 Est GFR (Non-Af Amer) 50 L D BUN/Creatinine Ratio 52.6 H Magnesium 2.4 - Medications Medications: Active Medications Aspirin (Aspirin Enteric Coated) 81 mg PO DAILY [facility] Stop: 06/14/18 09:16 Last Admin: 05/18/18 10:17 Dose: 81 mg Diltiazem HCl (Cardizem Cd) 180 mg PO DAILY [facility] Stop: 06/14/18 09:16 Last Admin: 05/18/18 10:17 Dose: 180 mg Enoxaparin Sodium (Lovenox) 100 mg SC Q24H [facility] Stop: 06/16/18 12:01 Last Admin: 05/18/18 11:25 Dose: 100 mg Glimepiride (Amaryl) 4 mg PO BID [facility] Stop: 06/14/18 09:16 Last Admin: 05/18/18 10:18 Dose: 4 mg Diltiazem HCl 125 mg/ Dextrose (/Water) 125 mls @ 0 mls/hr IV TITR PRN; Protocol PRN Reason: Arrhythmia Stop: 06/16/18 04:55 Last Titration: 05/17/18 09:21 Dose: 0 mg/hr, 0 mls/hr Potassium Chloride 20 meq/ (Sodium Chloride) 1,010 mls @ 150 mls/hr IV .Q6H44M [facility] Stop: 06/16/18 09:31 Last Admin: 05/17/18 09:06 Dose: 30 mls/hr Piperacillin Sod/Tazobactam (Sod 3.375 gm/ Dextrose/Water) 100 mls @ 25 mls/hr IV Q8H [facility]; Protocol Stop: 06/16/18 08:46 Last Admin: 05/18/18 09:19 Dose: 25 mls/hr Levothyroxine Sodium (Synthroid) 50 mcg PO DAILY@0700 [facility] Stop: 06/14/18 09:16 Last Admin: 05/18/18 08:25 Dose: 50 mcg Losartan Potassium (Cozaar) 50 mg PO DAILY [facility] Stop: 06/14/18 09:16 Last Admin: 05/18/18 10:18 Dose: 50 mg Metformin HCl (Glucophage) 1,000 mg PO BIDWM [facility] Stop: 06/14/18 17:01 Last Admin: 05/16/18 16:44 Dose: Not Given Metoclopramide HCl (Reglan) 10 mg IV Q4H PRN PRN Reason: Nausea And Vomiting Stop: 06/14/18 21:32 Last Admin: 05/16/18 09:44 Dose: 10 mg Rosuvastatin Calcium (Crestor) 5 mg PO HS [facility] Stop: 06/14/18 21:01 Last Admin: 05/17/18 23:14 Dose: 5 mg Saccharomyces Boulardii (Florastor) 250 mg PO BID [facility] Stop: 06/16/18 09:01 Last Admin: 05/18/18 10:17 Dose: 250 mg Sitagliptin Phosphate (Januvia) 100 mg PO DAILY [facility] Stop: 06/14/18 09:16 Last Admin: 05/18/18 10:18 Dose: 100 mg Topiramate (Topamax) 100 mg PO [facility] Stop: 06/14/18 21:01 Last Admin: 05/17/18 23:14 Dose: 100 mg Discontinued Medications Diatrizoate Meglum/Diatrizoate Sod (Gastrografin Solution) 60 ml PO ONCE ONE Stop: 05/16/18 08:01 Last Admin: 05/16/18 08:08 Dose: 60 ml Digoxin (Lanoxin) 0.5 mg IV ONCE ONE Stop: 05/17/18 02:06 Last Admin: 05/17/18 02:20 Dose: 0.5 mg Diltiazem HCl (Cardizem) 5 mg IV ONCE ONE Stop: 05/15/18 11:28 Last Admin: 05/15/18 11:35 Dose: 5 mg Diltiazem HCl (Cardizem) 5 mg IV ONCE ONE Stop: 05/17/18 01:12 Last Admin: 05/17/18 01:19 Dose: 5 mg Diltiazem HCl (Cardizem) 5 mg IV ONCE ONE Stop: 05/17/18 03:59 Last Admin: 05/17/18 04:20 Dose: 5 mg Enoxaparin Sodium (Lovenox) 30 mg SC Q24H [facility] Stop: 06/14/18 13:31 Last Admin: 05/16/18 14:29 Dose: 30 mg Sodium Chloride (Sodium Chloride 0.9%) 1,000 mls @ 999 mls/hr IV .Q1H1M PRN PRN Reason: HYDRATION Stop: 06/13/18 20:02 Last Infusion: 05/14/18 23:42 Dose: Infused Sodium Chloride (Sodium Chloride 0.9%) 1,000 mls @ 150 mls/hr IV .Q6H40M ONE Stop: 05/15/18 05:21 Last Infusion: 05/15/18 06:52 Dose: Infused Sodium Chloride (Sodium Chloride 0.9%) 1,000 mls @ 150 mls/hr IV .Q6H40M PRN PRN Reason: HYDRATION Stop: 06/14/18 09:48 Last Infusion: 05/18/18 08:25 Dose: Infused Potassium Chloride/Water (Kcl 10 Meq/100 Ml Piggyback) 100 mls @ 100 mls/hr IV Q1H [facility] Stop: 05/17/18 09:29 Last Infusion: 05/17/18 10:05 Dose: Infused Potassium Chloride/Water (Kcl 10 Meq/100 Ml Piggyback) 100 mls @ 100 mls/hr IV Q1H [facility] Stop: 05/18/18 09:59 Last Admin: 05/18/18 10:16 Dose: 100 mls/hr Ketorolac Tromethamine (Toradol) 30 mg IV ONCE ONE Stop: 05/14/18 20:03 Last Admin: 05/14/18 20:48 Dose: 30 mg Metoprolol Tartrate (Lopressor) 5 mg IV ONCE ONE Stop: 05/15/18 12:45 Last Admin: 05/15/18 13:21 Dose: 5 mg Ondansetron HCl (Zofran) 4 mg IV ONCE ONE Stop: 05/14/18 20:02 Last Admin: 05/14/18 20:45 Dose: 4 mg Ondansetron HCl (Zofran) 4 mg PO Q4H PRN PRN Reason: Nausea And Vomiting Stop: 06/14/18 09:25 Last Admin: 05/15/18 10:50 Dose: 4 mg Ondansetron HCl (Zofran) 4 mg IV Q4H [facility] Stop: 05/16/18 03:31 Last Admin: 05/16/18 03:28 Dose: 4 mg - Disposition Disposition: Short Term Hospital Inpatient Condition: Fair Discharge Date: 05/18/18 Discharge Time: 20:50
[2018-05-18] MEDS: POTASSIUM CHLORIDE 20 MEQ in NORMAL SALINE 1,000 ML IV SCH ×2 (16:41→17:12)
[2018-05-19 01:55] VITALS: BP 106/55
== END 2018-05-18 20:50 | disposition short-term general hospital (02) | DRG 394 ==
LOC: ER 19:21 → MS 19:21 → SCU 05-17 04:59 → MS 05-17 17:22
PROVIDERS: ADMIT Family Medicine; ATTEND Internal Medicine
CPT/HCPCS: 36415; 71010; 71020; 71045; 71046; 74000; 74018; 74019; 74020; 74178; 80048; 80051; 80053; 81001; 82009; 82565; 82570; 83519; 83735; 83880; 84300; 84484; 84520; 85007; 85025; 87040; 93005; 96361; 96374; 96375; 99285; J2405